=== PATIENT | female | born 1965 | race Caucasian/White ===

== ENCOUNTER 2016-08-04 12:05 | Emergency (ER) | payer MEDICAID ==
[2016-08-04 12:17] VITALS: BP 148/86
--- NOTE | 2016-08-04 13:48 | ERNOTE ---
Date of Service: 08/04/16 Time Seen by Provider: 08/04/16 13:48 Stated Complaint: FEVER,CHILLS,BACK PAIN Presenting Symptoms:: cough Source: patient Immunizations: IMMUNIZATION HX Immunizations Up to Date No History of Influenza Vaccine More Information Required Hx Pneumococcal Vaccination More Information Required Allergies/Adverse Reactions: Allergies No Known Allergies Allergy (Verified 08/04/16 12:17) Home Medications: HOME MEDICATIONS Albuterol Sulfate [Ventolin HFA] 2 puff IH Q6H PRN 7 Days 08/04/16 [Last Taken Unknown] Benzonatate [Tessalon Perle] 100 mg PO TID #20 capsule 08/04/16 [Last Taken Unknown] Doxycycline Monohydrate 100 mg PO BID #20 tablet 08/04/16 [Last Taken Unknown] Prednisone [Deltasone] 20 mg PO BID #10 tablet 08/04/16 [Last Taken Unknown] - History of Present Ilness Timing: constant Severity: moderate Frequency/Possible Cause: Reports: no prior episodes Associated Symptoms: Reports: cough, shortness of breath Review of Systems - Review of Systems Constitutional: Present: See HPI EYE: Present: no symptoms reported ENT: Present: sore throat Respiratory: Present: shortness of breath, cough, wheezing Cardiology: Present: no symptoms reported Gastrointestinal/Abdominal: Present: no symptoms reported Genitourinary: Present: no symptoms reported Musculoskeletal: Present: no symptoms reported Skin: Present: no symptoms reported Neurological: Present: no symptoms reported Endocrine: Present: no symptoms reported Hematologic/Lymphatic: Present: no symptoms reported Psych: Present: no symptoms reported - Patient's Past Medical History Patient History - Medical: Arthritis, Chronic Pain, GERD, Migraines, Other Patient History - Cardiac/Respiratory: Asthma Patient History - Cancer: No Hx of Cancer Patient History - Surgical Procedures: , Tubal Ligation, Other - Family History Mother Family History - Medical: , No pertinent hx Father Family History - Medical: History Unknown - Social History Living Situations: home Alcohol Use: occasionally Drug Use: none Physical Exam - Physical Exam General Appearance: Present: wd/wn, alert, moderate distress Eye Exam: Normal inspection: bilateral, PERRL: bilateral Ears, Nose, Throat: Present: hearing grossly normal, pharyngeal erythema Neck: Present: normal inspection, nontender Respiratory: Present: no accessory muscle use, chest nontender, wheezing, other - fine coarse breath sounds Cardiovascular/Chest: Present: regular rate, rhythm, no murmur, normal peripheral pulses Gastrointestinal/Abdominal: Present: normal bowel sounds, nontender, nondistended, soft, no organomegaly Rectal Exam: Present: deferred Back Exam: Present: normal inspection, normal range of motion Extremity Exam: Present: normal inspection, non-tender, no edema, normal range of motion Neurological Exam: Present: alert, oriented, normal mood/affect Skin Exam: Present: normal color, warm/dry Lymphatic Exam: Present: no adenopathy ED Progress - Results and Orders Patient's Lab Results:: I have reviewed the patient's lab results. - Vital Signs Patient's Vital Signs:: I have reviewed the patient's vital signs. Vital Signs: Vital Signs 08/04/16 12:12 Temperature 36.6 C Pulse Rate 97 Respiratory 12 Rate Blood Pressure 148/86 O2 Sat by Pulse 100 Oximetry - X-Ray X-Ray #1 X-Ray: chest Interpretation: Reviewed by me - Progress/Reassessment Chief Complaint: Upper Respiratory Symptoms Progress:: Improved - Transfer of Care Expected Disposition: Discharge Plan - Plan Plan: We discussed smoking cessation and she will consider it. Departure - Departure Clinical Impression: COPD (chronic obstructive pulmonary disease) with acute bronchitis Disposition: Home self-care Condition: Good Instructions: Chronic Obstructive Pulmonary Disease, [id number] Prescriptions: Albuterol Sulfate [Ventolin HFA] 2 puff IH Q6H PRN 7 Days PRN Reason: Wheezing Benzonatate [Tessalon Perle] 100 mg PO TID #20 capsule Doxycycline Monohydrate 100 mg PO BID #20 tablet Prednisone [Deltasone] 20 mg PO BID #10 tablet
[2016-08-04] MEDS ORDERED: predniSONE 20 MG TABLET PO ONE (14:01)
[2016-08-04] MEDS ORDERED: BENZONATATE 100 MG CAPSULE PO ONE ×2 (14:01→14:17)
[2016-08-04] MEDS ORDERED: ALBUTEROL SULFATE/IPRATROPIUM 3 ML NEBU IH ONE ×2 (14:01→14:17)
[2016-08-04 14:17] LABS: Hematocrit 46.7 % (37.0-47.0); Hemoglobin 15.2 gm/dL (12.5-16.0); Mean Cell Volume 93.8 fl (78-100); Mean Corpuscular Hemoglobin 30.5 pg (27-31); Mean Corpuscular Hgb Conc 32.5 g/dl (32-36); Mean Platelet Volume 9.1 fl (6.0-9.5); Neutrophil # 4.4 K/mm3 (1.3-6.0); Neutrophil % 52.3 % (42-75.0); Platelet Count 324 K/mm3 (150-450); Red Blood Count 4.98 M/mm3 (4.2-5.4); Red Cell Distribution Width 12.7 % (11.5-14.0); White Blood Count 8.4 K/mm3 (4.0-10.5)
[2016-08-04] MEDS ORDERED: predniSONE 20 MG TABLET ONE (14:17)
[2016-08-04 14:38] LABS: Anion Gap 10.8 mmol/L (6.8-13.8); Bilirubin, Total 0.5 mg/dL (0.0-1.1); Ca. Corrected For Albumin 8.3 mg/dL (8.4-10.2); Calcium * 8.6 mg/dL (7.9-10.9); Carbon Dioxide 30.4 mmol/L (24-32.6); Magnesium 2.1 mg/dL (1.2-2.8); Potassium 4.2 mmol/L (3.4-4.6); Total Protein 7.4 gm/dL (6.2-8.2)
== END 2016-08-04 15:50 | disposition home or self-care (01) ==
LOC: ER 12:05
DX: J44.0 Chronic obstructive pulmonary disease with (acute) lower respiratory infection (principal); J20.9 Acute bronchitis, unspecified

== ENCOUNTER 2016-09-15 12:20 | Emergency (ER) | payer MEDICAID ==
[2016-09-15] MEDS ORDERED: ASPIRIN 81 MG TAB.CHEW PO ONE (12:38)
[2016-09-15] MEDS ORDERED: oxyCODONE HCL/ACETAMINOPHEN 1 TAB TABLET PO ONE (12:39)
[2016-09-15] MEDS ORDERED: ORPHENADRINE CITRATE 30 MG/ML VIAL IV ONE (12:39)
--- NOTE | 2016-09-15 12:49 | ERNOTE ---
Medical Problem HPI - Narrative Date of Service: 09/15/16 - General Chief Complaint: General Assessment Time Seen by Provider: 09/15/16 12:32 Source: patient Exam Limitations: no limitations - Immun/Allergies/Home Medications Immunizations: IMMUNIZATION HX Immunizations Up to Date No History of Influenza Vaccine More Information Required Hx Pneumococcal Vaccination More Information Required Allergies/Adverse Reactions: Allergies No Known Allergies Allergy (Verified 09/15/16 12:29) Home Medications: HOME MEDICATIONS Albuterol Sulfate [Ventolin HFA] 2 puff IH Q6H PRN 7 Days 08/04/16 [Last Taken Unknown] Albuterol Sulfate [Proair Respiclick] 90 mcg IH Q6H #1 aer.pow.ba 09/15/16 [ Last Taken Unknown] Azithromycin [Zithromax] 250 mg PO DAILY #5 tablet 09/15/16 [Last Taken Unknown] oxyCODONE HCL/ACETAMINOPHEN [Percocet 5 MG/325 MG] 1 tab PO Q8H #12 tablet 09/15 [Last Taken Unknown] - History of Present History Narrative: Patient comes due to a R side chest pain that gets worse with breathing and movement. Patient with no Hx of Tx and coughing. The pain started suddenly while working sitting. Timing: constant Severity: severe Modifying Factors - (Improves): Present: other - Nothing Modifying Factors - (Worsens): Present: movement Review of Systems - Review of Systems Constitutional: Absent: fever, chills, weakness, malaise EYE: Present: no symptoms reported ENT: Present: no symptoms reported Respiratory: Present: shortness of breath, cough. Absent: wheezing Cardiology: Present: chest pain - R side of the chest Gastrointestinal/Abdominal: Present: no symptoms reported Genitourinary: Present: no symptoms reported Musculoskeletal: Present: no symptoms reported Skin: Present: no symptoms reported Neurological: Present: no symptoms reported Endocrine: Present: no symptoms reported Hematologic/Lymphatic: Absent: easy bruising, easy bleeding Psych: Present: no symptoms reported All Other Systems: All systems neg except as marked - Patient's Past Medical History Patient History - Medical: Arthritis, Chronic Pain, GERD, Migraines, Other Patient History - Cardiac/Respiratory: COPD Patient History - Cancer: No Hx of Cancer Patient History - Surgical Procedures: , Tubal Ligation, Other Patient History - Other: None LMP (Calendar): 10/24/15 - Family History Mother Family History - Medical: , No pertinent hx Father Family History - Medical: History Unknown - Social History Living Situations: home Abuse History: No History of abuse Psych History: No pertinent hx Smoking Status: Current every day smoker Have you smoked in the past 12 months: Yes Alcohol Use: occasionally Drug Use: none - Immunizations Immunizations Up to Date: No Hx Pneumococcal Vaccination: More Information Required to Determine History of Influenza Vaccine: More Information Required to Determine Physical Exam - Physical Exam General Appearance: Present: wd/wn, alert, no apparent distress, anxious, thin Eye Exam: Normal inspection: bilateral, PERRL: bilateral, EOMI: bilateral Ears, Nose, Throat: Present: normal ENT inspection, hearing grossly normal, normal pharynx Neck: Present: normal inspection, nontender Respiratory: Present: no respiratory distress, normal breath sounds, no accessory muscle use, lungs clear, chest tenderness - There is pain on breathing and on palpation on the R side of the chest. No rash was noticed on the area Cardiovascular/Chest: Present: regular rate, rhythm, no murmur, normal peripheral pulses Gastrointestinal/Abdominal: Present: normal bowel sounds, nontender, nondistended, soft, no organomegaly Back Exam: Present: normal inspection, normal range of motion, no CVA tenderness , no vertebral tenderness Extremity Exam: Present: normal inspection, non-tender, no edema, normal range of motion Neurological Exam: Present: alert, oriented, normal mood/affect, no motor/ sensory deficits Skin Exam: Present: normal color, warm/dry Lymphatic Exam: Present: no adenopathy ED Progress - Date and Time Seen: Date and Time: 09/15/16 15:30 PORT/PSI Score for CAP: Class II Patient with no distress and is not vomiting. Patient will be given Tx. CT and X -ray report by Radiologist were noticed. 09/15/16 15:31 Patient has been informed of the need of follow up and using her antibiotics. - Results and Orders Patient's Lab Results:: I have reviewed the patient's lab results. Results and Orders: CBC: Elevated WBC D-Dimmer: Negative PT/INR: Normal CMP: Normal Trop 1: Negative - Vital Signs Patient's Vital Signs:: I have reviewed the patient's vital signs. Vital Signs: Vital Signs 09/15/16 12:24 Pulse Rate 97 Respiratory 23 H Rate Blood Pressure 145/94 O2 Sat by Pulse 97 Oximetry - EKG EKG: NSR EKG read: Interp. by me EKG Comments: HR: 97, Normal [place], No ST Elevation - X-Ray X-Ray #1 X-Ray: chest - Pneumonia Documented by Radiologist - CT/Ultrasound CT/Ultrasound Narrative: CT of the Chest was done and infectious process was confirmed. F/U CT with IV contrast was recommended. - Progress/Reassessment Chief Complaint: General Assessment Progress:: Improved - Transfer of Care Expected Disposition: Discharge Departure - Departure Clinical Impression: Chest pain Qualifiers: Chest pain type: unspecified Qualified Code(s): R07.9 - Chest pain, unspecified Pneumonia Qualifiers: Pneumonia type: due to unspecified organism Laterality: unspecified laterality Lung location: unspecified part of lung Qualified Code(s): J18.9 - Pneumonia, unspecified organism Disposition: Home self-care Condition: Stable Instructions: Chest Wall Pain, [id number], Chronic Obstructive Pulmonary Disease, [id number], Pneumonia, Infant Prescriptions: Albuterol Sulfate [Proair Respiclick] 90 mcg IH Q6H #1 aer.pow.ba Azithromycin [Zithromax] 250 mg PO DAILY #5 tablet oxyCODONE HCL/ACETAMINOPHEN [Percocet 5 MG/325 MG] 1 tab PO Q8H #12 tablet
[2016-09-15 12:50] LABS: Hematocrit 38.4 % (37.0-47.0); Mean Corpuscular Hemoglobin 30.8 pg (27-31); Mean Corpuscular Hgb Conc 33.9 g/dl (32-36); Mean Platelet Volume 9.3 fl (6.0-9.5); Neutrophil # 13.9 K/mm3 (1.3-6.0); Neutrophil % 78.8 % (42-75.0); Platelet Count 275 K/mm3 (150-450); Red Blood Count 4.22 M/mm3 (4.2-5.4); Red Cell Distribution Width 12.7 % (11.5-14.0); White Blood Count 17.6 K/mm3 (4.0-10.5)
[2016-09-15 13:03] LABS: Prothrombin Time (Patient) 10.4 Seconds (9.4-11.4)
[2016-09-15 13:05] LABS: Partial Thrombolplastin Time 29.5 Seconds (24-32)
[2016-09-15] MEDS ORDERED: oxyCODONE HCL/ACETAMINOPHEN 1 TAB TABLET ONE (13:05)
[2016-09-15] MEDS ORDERED: ORPHENADRINE CITRATE 30 MG/ML VIAL ONE (13:05)
[2016-09-15] MEDS ORDERED: ASPIRIN 81 MG TAB.CHEW ONE (13:05)
[2016-09-15 13:08] LABS: ALT 48 U/L (19-67); AST 28 U/L (0-48); Albumin * 3.7 gm/dl (3.4-5.0); Alkaline Phosphatase * 74 U/L (50-170); Anion Gap 16.9 mmol/L (6.8-13.8); BUN/Creatinine Ratio 18.3 (9.0-21.6); Bilirubin, Total 0.9 mg/dL (0.0-1.1); Blood Urea Nitrogen 13 mg/dL (3-23); Ca. Corrected For Albumin 8.4 mg/dL (8.4-10.2); Calcium * 8.5 mg/dL (7.9-10.9); Carbon Dioxide 20.9 mmol/L (24-32.6); Chloride 102 mmol/L (97-106); Glucose * 97 mg/dL (70-110); Potassium 3.8 mmol/L (3.4-4.6); Sodium 136 mmol/L (132-142); Total Protein 7.6 gm/dL (6.2-8.2); Troponin I Less than 0.017 ng/ml (0.00-0.10)
--- OUTSIDE RECORDS SUMMARY | 2016-09-15 13:12 | XMS REPORT | Continuity of Care Document ---
:1965 Author Organization [facility] ([facility]) Address [address] [place] [address] Phone [phone] Care Team Providers Name Role Phone Alec Hartley Primary Care Provider [phone] Source Comments This disclosure is being made pursuant to the Care Everywhere program, applicable federal and state laws, and may not contain all informaitonavailable regarding this patient.[facility] ([facility]) Active Allergies and Adverse Reactions Allergen Noted Date Severity Reactions Comments Non-Med Tape Blisters,Ulcers Current Medications Prescription Sig. Disp. Refills Start Date End Date Status ASPIRIN/ACETAMINOPHEN/ Take by mouth Active CAFFEINE (EXCEDRIN as needed. MIGRAINE PO) ibuprofen (ADVIL) 200 Take 400 mg by Active mg tablet mouth every 6 hours as needed. risperiDONE 2 mg Take 2 mg by Active tablet mouth daily. naltrexone 50 mg Take 50 mg by Active tablet mouth daily. ondansetron 8 mg Take 8 mg by Active tablet mouth as needed. topiramate 50 mg Take 50 mg by Active tablet mouth daily. diphenhydrAMINE 25 mg Take 100 mg by Active capsule mouth at bedtime as needed. amoxicillin-clavulanat Take 1 Tab by Active e 500-125 mg per mouth 3 times tablet daily. escitalopram 20 mg Take 10 mg by Active tablet mouth daily. polyethylene Take as directed 1 Container 0 09/10/2013 Active glycol-electrolyte the evening (GOLYTELY) suspension before your procedure. 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 Temperature 36.3 C (97.3 F) 10/01/2013 3:21 PM CDT Respiratory Rate 16 10/01/2013 5:23 PM CDT Height 1.575 m (5' 2.01") 06/06/2013 9:52 AM MANAGER PROVIDER RELATIONS Weight 50.576 kg (111 lb 8 oz) 06/06/2013 9:52 AM MANAGER PROVIDER RELATIONS Body Mass Index 20.39 06/06/2013 9:52 AM MANAGER PROVIDER RELATIONS Oxygen Saturation 100% 10/01/2013 5:23 PM CDT Plan of Care Health Maintenance Due Date Last Done Comments HCV Screening 1965 Hepatitis B Vaccine (1 of 3 - Primary Series) 1965 Tdap Vaccine 1976 Lipid Disorder Screening 1983 MMR Vaccine 1983 Td Vaccine 1983 Pneumococcal Vaccine (1 of 1 - PPSV23) 1984 Cervical Cancer Screening 1995 Mammogram 2005 Influenza Vaccine: Seasonal (#1) 02/23/2016 Colonoscopy 10/08/2023 10/07/2013 Results from Last 3 Months Not on file
[2016-09-15] MEDS ORDERED: AZITHROMYCIN 250 MG TABLET PO ONE (14:06)
[2016-09-15] MEDS ORDERED: AZITHROMYCIN 250 MG TABLET ONE (14:09)
[2016-09-15 16:45] VITALS: BP 117/81
== END 2016-09-15 15:40 | disposition home or self-care (01) ==
LOC: ER 12:20
DX: J18.9 Pneumonia, unspecified organism (principal); R07.9 Chest pain, unspecified; F17.210 Nicotine dependence, cigarettes, uncomplicated

== ENCOUNTER 2016-12-16 11:31 | Emergency (ER) | payer SELFPAY ==
--- NOTE | 2016-12-16 12:03 | ERNOTE ---
Chest Pain/Cardiac HPI Chief Complaint: Chest Pain Time Seen by Provider: 12/16/16 11:31 Source: patient Exam Limitations: no limitations Immunizations: IMMUNIZATION HX Immunizations Up to Date Yes History of Influenza Vaccine Yes Hx Pneumococcal Vaccination Yes Allergies/Adverse Reactions: Allergies No Known Allergies Allergy (Verified 12/16/16 11:47) Home Medications: HOME MEDICATIONS Albuterol Sulfate [Ventolin HFA] 2 puff IH Q6H PRN 7 Days 08/04/16 [Last Taken Unknown] Albuterol Sulfate [Proair Respiclick] 90 mcg IH Q6H #1 aer.pow.ba 09/15/16 [ Last Taken Unknown] Azithromycin [Zithromax] 250 mg PO DAILY #5 tablet 09/15/16 [Last Taken Unknown] oxyCODONE HCL/ACETAMINOPHEN [Percocet 5 MG/325 MG] 1 tab PO Q8H #12 tablet 09/15 [Last Taken Unknown] Narrative: Patient is send over from the walk in clinic for chest and abdominal pain that she has had on and off for about two weeks. She was seen in the ER in August and treated for a COPD exacerbation. Two weeks ago she had an episode of chest pain and congestion, two days ago an episode where she felt that something was sitting on her chest. She went to the walk in clinic where she was found to be confused and reporting the recent chest pain. The patient denies any current pain, shortness of breath at baseline. She still smokes. She also complains of abdominal discomfort that has been going on for a while, nausea, no vomiting, normal bowel movement this morning. She has been going through a lot of stress, lost her mother recently, lost her job. Review of Systems - Review of Systems Constitutional: Absent: recent illness, fever EYE: Absent: vision changes ENT: Absent: nose congestion, throat swelling Respiratory: Present: shortness of breath, cough Cardiology: Present: See HPI, chest pain Gastrointestinal/Abdominal: Present: See HPI, nausea. Absent: vomiting, diarrhea Genitourinary: Present: no symptoms reported Musculoskeletal: Absent: back pain, neck pain Neurological: Present: anxiety, headache - left sided, feels like migraine. Absent: weakness, numbness - Patient's Past Medical History Patient History - Medical: Arthritis, Chronic Pain, GERD, Migraines, Other Patient History - Cardiac/Respiratory: COPD Patient History - Cancer: No Hx of Cancer Patient History - Surgical Procedures: , Tubal Ligation, Other Patient History - Other: None LMP (females 10-50): now LMP (Calendar): 10/24/15 - Family History Mother Family History - Medical: , No pertinent hx Father Family History - Medical: History Unknown - Social History Living Situations: home Abuse History: No History of abuse Psych History: No pertinent hx Smoking Status: Current every day smoker Alcohol Use: occasionally Drug Use: none - Immunizations Immunizations Up to Date: Yes Hx Pneumococcal Vaccination: Yes History of Influenza Vaccine: Yes Physical Exam - Physical Exam General Appearance: Present: wd/wn, alert, no apparent distress, anxious Eye Exam: Normal inspection: bilateral, PERRL: bilateral Ears, Nose, Throat: Present: normal pharynx Respiratory: Present: no respiratory distress, no accessory muscle use, lungs clear, decreased breath sounds Cardiovascular/Chest: Present: regular rate, rhythm, no murmur Gastrointestinal/Abdominal: Present: normal bowel sounds, nondistended, soft, tenderness - mild epigastric Extremity Exam: Present: no edema Neurological Exam: Present: alert, oriented, normal mood/affect Skin Exam: Present: normal color, warm/dry ED Progress - Results and Orders Patient's Lab Results:: I have reviewed the patient's lab results. - Vital Signs Patient's Vital Signs:: I have reviewed the patient's vital signs. Vital Signs: Vital Signs 12/16/16 12/16/16 11:40 11:55 Temperature 36.4 C L Pulse Rate 85 69 Respiratory 14 Rate Blood Pressure 108/90 O2 Sat by Pulse 100 Oximetry - EKG EKG: NSR, unchanged from - 09/15/16, other - prominent P wave, no acute changes EKG read: Interp. by me - X-Ray X-Ray #1 X-Ray: chest - no acute changes Interpretation: Reviewed by me X-Ray #2 X-Ray: abdomen - non specific bowel gas pattern Interpretation: Reviewed by me - Progress/Reassessment Chief Complaint: Chest Pain Progress Note-Subjective: 12/16/16 13:13 discussed results with patient, still has headache 12/16/16 13:57 feeling much better after GI cocktail Departure - Departure Clinical Impression: Anxiety Migraine Qualifiers: Migraine type: unspecified Status migrainosus presence: without status migrainosus Intractability: not intractable Qualified Code(s): G43.909 - Migraine, unspecified, not intractable, without status migrainosus Gastritis Qualifiers: Gastritis type: unspecified gastritis Chronicity: acute Gastritis bleeding: without bleeding Qualified Code(s): K29.00 - Acute gastritis without bleeding Disposition: Home self-care Condition: Good Instructions: Gastritis, Adult, [id number] Additional Instructions: take over the counter zantac or pepcid call your doctor for a follow up appointment Referrals: Cami Engle DO [Primary Care Provider] -
--- OUTSIDE RECORDS SUMMARY | 2016-12-16 12:06 | XMS REPORT | Continuity of Care Document ---
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
[2016-12-16 12:07] LABS: Hematocrit 50.5 % (37.0-47.0); Hemoglobin 16.7 gm/dL (12.5-16.0); Mean Corpuscular Hemoglobin 30.4 pg (27-31); Mean Corpuscular Hgb Conc 33.1 g/dl (32-36); Mean Platelet Volume 9.4 fl (6.0-9.5); Neutrophil % 73.3 % (42-75.0); Platelet Count 330 K/mm3 (150-450); Red Blood Count 5.49 M/mm3 (4.2-5.4); Red Cell Distribution Width 12.9 % (11.5-14.0); White Blood Count 8.3 K/mm3 (4.0-10.5)
[2016-12-16 12:25] LABS: ALT 60 U/L (19-67); AST 44 U/L (0-48); Albumin * 4.3 gm/dl (3.4-5.0); Alkaline Phosphatase * 78 U/L (50-170); Amylase * 72 U/L (25-115); Anion Gap 12.6 mmol/L (6.8-13.8); BUN/Creatinine Ratio 12.3 (9.0-21.6); Bilirubin, Total 0.7 mg/dL (0.0-1.1); Blood Urea Nitrogen 10 mg/dL (3-23); Ca. Corrected For Albumin 8.4 mg/dL (8.4-10.2); Carbon Dioxide 29.4 mmol/L (24-32.6); Chloride 102 mmol/L (97-106); Glucose * 95 mg/dL (70-110); Lipase 260 U/L (73-393); Sodium 140 mmol/L (132-142); Total Protein 8.2 gm/dL (6.2-8.2); Troponin I Less than 0.017 ng/ml (0.00-0.10)
[2016-12-16] MEDS ORDERED: KETOROLAC TROMETHAMINE 60 MG/2 ML VIAL IM ONE ×2 (13:12→13:26)
[2016-12-16] MEDS ORDERED: MAG HYDROX/ALUMINUM HYD/SIMETH 30 ML UDC PO ONE (13:13)
[2016-12-16] MEDS ORDERED: SUCRALFATE 1 G/10 ML UDC PO ONE (13:13)
[2016-12-16] MEDS ORDERED: LIDOCAINE HCL 20 ML UDC PO ONE (13:13)
[2016-12-16 15:18] VITALS: BP 127/69
== END 2016-12-16 14:05 | disposition home or self-care (01) ==
LOC: ER 11:31
DX: F41.9 Anxiety disorder, unspecified (principal); K29.00 Acute gastritis without bleeding; G43.909 Migraine, unspecified, not intractable, without status migrainosus; F17.200 Nicotine dependence, unspecified, uncomplicated

== ENCOUNTER 2016-12-22 17:09 | Emergency (ER) | payer SELFPAY ==
--- NOTE | 2016-12-22 17:54 | ERNOTE ---
Back Pain ER HPI Date of Service: 12/22/16 Presenting Symptoms: injury/pain to back Time Seen by Provider: 12/22/16 17:44 Source: patient Exam Limitations: other - deep breathing causes pain Immunizations: IMMUNIZATION HX Immunizations Up to Date Yes History of Influenza Vaccine Yes Hx Pneumococcal Vaccination Yes Allergies/Adverse Reactions: Allergies No Known Allergies Allergy (Verified 12/22/16 17:43) Home Medications: HOME MEDICATIONS Albuterol Sulfate [Ventolin HFA] 2 puff IH Q6H PRN 7 Days 08/04/16 [Last Taken Unknown] Amox Tr/Potassium Clavulanate [Augmentin 875-125 Tablet] 875 mg PO Q12H #20 tab 12/22/16 [Last Taken Unknown] Azithromycin [Zithromax Tri-Devin] 500 mg PO DAILY #5 tablet 12/22/16 [Last Taken Unknown] Guaifenesin/Codeine Phosphate [Guaifenesin-Codeine Liquid] 10 ml PO TID #480 liquid 12/22/16 [Last Taken Unknown] Review of Systems - Review of Systems Constitutional: Present: fever, chills EYE: Present: no symptoms reported ENT: Present: no symptoms reported Respiratory: Present: shortness of breath, cough, other - RIGHT SIDED PLEURITIC CP Cardiology: Present: chest pain - WITH INSPIRATION, RIGHT SIDED. Gastrointestinal/Abdominal: Present: no symptoms reported Genitourinary: Present: no symptoms reported Musculoskeletal: Present: no symptoms reported, other - PLEURITIC CP ON RT SIDE Skin: Present: no symptoms reported Neurological: Present: no symptoms reported Endocrine: Present: no symptoms reported Hematologic/Lymphatic: Present: no symptoms reported Psych: Present: no symptoms reported All Other Systems: All systems neg except as marked - Narrative Narrative: PMHX, PSHX, SOC HX, ALLERGIES, MEDICATIONS AND FAM HX REVIEWED - Patient's Past Medical History Patient History - Medical: Arthritis, Chronic Pain, GERD, Migraines, Other Patient History - Cardiac/Respiratory: COPD Patient History - Cancer: No Hx of Cancer Patient History - Surgical Procedures: , Tubal Ligation, Other Patient History - Other: None LMP (Calendar): 10/24/15 - Family History Mother Family History - Medical: , No pertinent hx Father Family History - Medical: History Unknown - Social History Living Situations: home Abuse History: No History of abuse Psych History: No pertinent hx Smoking Status: Current every day smoker Have you smoked in the past 12 months: Yes Alcohol Use: occasionally Drug Use: none - Immunizations Immunizations Up to Date: Yes Hx Pneumococcal Vaccination: Yes History of Influenza Vaccine: Yes Physical Exam - Physical Exam General Appearance: Present: wd/wn, alert, no apparent distress Eye Exam: Normal inspection: bilateral, PERRL: bilateral, EOMI: bilateral - NORMAL Ears, Nose, Throat: Present: normal ENT inspection, normal except -, pharyngeal erythema Neck: Present: normal inspection, nontender Respiratory: Present: no respiratory distress, normal breath sounds, no accessory muscle use, decreased breath sounds - RIGHT LLL Cardiovascular/Chest: Present: regular rate, rhythm, no murmur, normal peripheral pulses Gastrointestinal/Abdominal: Present: normal bowel sounds, nontender, nondistended, soft, no organomegaly Rectal Exam: Present: deferred Back Exam: Present: normal inspection, normal range of motion, no CVA tenderness Extremity Exam: Present: normal inspection, non-tender, normal range of motion, no edema Neurological Exam: Present: alert, oriented, normal mood/affect, no motor/ sensory deficits Skin Exam: Present: normal color, warm/dry Lymphatic Exam: Present: no adenopathy ED Progress - Date and Time Seen: Date and Time: 12/22/16 19:18 PLEURITIC CHEST PAIN - Results and Orders Patient's Lab Results:: I have reviewed the patient's lab results. - Vital Signs Patient's Vital Signs:: I have reviewed the patient's vital signs. Vital Signs: Vital Signs 12/22/16 17:40 Temperature 36.9 C Pulse Rate 97 Respiratory 14 Rate Blood Pressure 133/108 O2 Sat by Pulse 99 Oximetry - CT/Ultrasound CT/Ultrasound Narrative: PATIENT WAS INFORMED OF RESULTS OF CT OF CHEST, CONCERNS FOR PULM NODULES AND OR MALIG RECOMMENDATIONS REVIEWED W PATIENT TO HAVE A REPEAT CT THORAX BETWN 1 AND 3 MONTHS. PATIENT HAS ELEVATED WBC. - Progress/Reassessment Chief Complaint: Back Pain Progress:: Improved - Transfer of Care Expected Disposition: Discharge Plan - Plan Plan: PATIENT STABLE FOR DISCHARGE WILL FOLLOW UP WITH DR LYLE TO ENSURE PNEUMONIA RESOLVES. Departure Clinical Impression: Pneumonia, lobar, COPD (chronic obstructive pulmonary disease) with acute bronchitis Chest pain Qualifiers: Chest pain type: chest pain on breathing Qualified Code(s): R07.1 - Chest pain on breathing - Departure Disposition: Home self-care Instructions: Chronic Obstructive Pulmonary Disease Exacerbation, [id number] , Smoking Cessation, Tips for Success, [id number], Atelectasis, Adult, Pulmonary Fibrosis Referrals: Cami Lyle DO [Primary Care Provider] - Prescriptions: Amox Tr/Potassium Clavulanate [Augmentin 875-125 Tablet] 875 mg PO Q12H #20 tab Azithromycin [Zithromax Tri-Devin] 500 mg PO DAILY #5 tablet Guaifenesin/Codeine Phosphate [Guaifenesin-Codeine Liquid] 10 ml PO TID #480 liquid
[2016-12-22 18:31] LABS: Hematocrit 41.3 % (37.0-47.0); Hemoglobin 13.9 gm/dL (12.5-16.0); Mean Cell Volume 90.2 fl (78-100); Mean Corpuscular Hemoglobin 30.3 pg (27-31); Mean Corpuscular Hgb Conc 33.7 g/dl (32-36); Mean Platelet Volume 9.6 fl (6.0-9.5); Neutrophil # 9.1 K/mm3 (1.3-6.0); Neutrophil % 73.4 % (42-75.0); Platelet Count 309 K/mm3 (150-450); Red Blood Count 4.58 M/mm3 (4.2-5.4); Red Cell Distribution Width 12.6 % (11.5-14.0); White Blood Count 12.4 K/mm3 (4.0-10.5)
--- OUTSIDE RECORDS SUMMARY | 2016-12-22 18:32 | XMS REPORT | Continuity of Care Document ---
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
[2016-12-22 20:02] VITALS: BP 130/89
== END 2016-12-22 19:45 | disposition home or self-care (01) ==
LOC: ER 17:09
DX: J18.1 Lobar pneumonia, unspecified organism (principal); J44.0 Chronic obstructive pulmonary disease with (acute) lower respiratory infection; J20.9 Acute bronchitis, unspecified; F17.210 Nicotine dependence, cigarettes, uncomplicated

== ENCOUNTER 2017-04-22 11:43 | Emergency (ER) | payer MEDICAID ==
[2017-04-22] MEDS ORDERED: KETOROLAC TROMETHAMINE 60 MG/2 ML VIAL IM ONE ×2 (12:10→12:17)
--- NOTE | 2017-04-22 12:10 | ERNOTE ---
Upper Extremity HPI - Narrative Date of Service: 04/22/17 - General Extremities Pain Location: wrist: bilateral, hand: bilateral, other: bilateral - face Time Seen by Provider: 04/22/17 11:53 Source: patient Exam Limitations: no limitations - Immun/Allergies/Home Medications Immunizations: IMMUNIZATION HX Immunizations Up to Date Yes History of Influenza Vaccine Yes Hx Pneumococcal Vaccination Yes Allergies/Adverse Reactions: Allergies Allergy/AdvReac Type Severity Reaction Status Date / Time No Known Allergies Allergy Verified 04/22/17 11:49 Home Medications: HOME MEDICATIONS NK [No Home Medication] 04/22/17 [Last Taken Unknown] - History of Present Illness Narrative: Pt. comes in with c/o facial pain and B hand pain after she fell forward when she passed out twice this morning. Pt. states tath at around 8 am she passed out in her bathroom when she got up from the commode and then she went to the kitchen and passed out again. Pt. is unsure of how long her LOC was. Pt. denies any SOB, CP, NVD, fever, recent illness. Pt. has a hx of chronic pain but denies taking any medications prior to arrival for these symptoms. Review of Systems - Review of Systems Constitutional: Present: no symptoms reported. Absent: recent illness, fever, chills, weakness, fatigue, malaise, weight loss EYE: Present: no symptoms reported ENT: Present: nose pain. Absent: nose congestion, nasal drainage, other - epistaxis Respiratory: Present: no symptoms reported. Absent: shortness of breath, cough , wheezing Cardiology: Present: no symptoms reported. Absent: chest pain, palpitations, edema Gastrointestinal/Abdominal: Present: no symptoms reported Genitourinary: Present: no symptoms reported. Absent: frequency, decreased urinary output Musculoskeletal: Present: joint pain - B hands Skin: Present: no symptoms reported. Absent: rash, change in color Neurological: Present: no symptoms reported. Absent: headache, dizziness/light- headedness, numbness, tingling All Other Systems: All systems neg except as marked - Patient's Past Medical History Patient History - Medical: Arthritis, Chronic Pain, GERD, Migraines Patient History - Cardiac/Respiratory: COPD Patient History - Cancer: No Hx of Cancer Patient History - Surgical Procedures: , Tubal Ligation, Other Patient History - Other: None LMP (Calendar): 10/24/15 - Family History Mother Family History - Medical: , No pertinent hx Father Family History - Medical: History Unknown - Social History Living Situations: home Abuse History: No History of abuse Psych History: No pertinent hx Alcohol Use: occasionally Drug Use: none - Immunizations Immunizations Up to Date: Yes Hx Pneumococcal Vaccination: Yes History of Influenza Vaccine: Yes Physical Exam - Physical Exam General Appearance: Present: wd/wn, alert, no apparent distress Head Exam: Present: lacerations - mid nasal bone center 0.2 x 0.2cm Eye Exam: Normal inspection: bilateral, PERRL: bilateral, EOMI: bilateral Ears, Nose, Throat: Present: normal ENT inspection, normal pharynx Neck: Present: normal inspection, nontender. Absent: lymphadenopathy (R), lymphadenopathy (L) Respiratory: Present: no respiratory distress, normal breath sounds, no accessory muscle use, chest nontender, lungs clear Cardiovascular/Chest: Present: regular rate, rhythm, no murmur, normal peripheral pulses Gastrointestinal/Abdominal: Present: normal bowel sounds, nontender, nondistended, soft, no organomegaly Back Exam: Present: normal inspection Extremity Exam: Present: no edema, decreased range of motion - flexion of fingers, bony tenderness - All fingers B hands, joint redness - B hands bowers. 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 tearful Skin Exam: Present: normal color, warm/dry. Absent: pallor, skin rash ED Progress - Date and Time Seen: Date and Time: 04/22/17 12:[address] Bruce and since pt. passed out and hit face on floor then she recommends CT scan of head and face vs xray. Pt. c spine not tender at all so will not image this. 04/22/17 13:33 Pt. with no nasal drainage and denies any sinus congestion but given mucosal thickening and 10.9 WBC feel taht pt. may have chronic sinusitis along with drug use that is causing passing out but that hands are simply contusions from landing with her hands out. - Results and Orders Patient's Lab Results:: I have reviewed the patient's lab results. - Vital Signs Patient's Vital Signs:: I have reviewed the patient's vital signs. Vital Signs: Vital Signs 04/22/17 11:46 Temperature 36.4 C L Pulse Rate 88 Respiratory 12 Rate Blood Pressure 182/77 O2 Sat by Pulse 100 Oximetry - X-Ray X-Ray #1 X-Ray: hand Interpretation: Reviewed by me X-ray Comments: no acute ossious abnormality X-Ray #2 X-Ray: hand Interpretation: Reviewed by me X-ray Comments: no obvious ossious abnormality - CT/Ultrasound CT/Ultrasound Narrative: CT face and head without any abnormality - Progress/Reassessment Chief Complaint: Upper Extremity Injury/Problem Departure Clinical Impression: Methamphetamine use Contusion of hand including fingers Qualifiers: Encounter type: initial encounter Laterality: unspecified laterality Qualified Code(s): S60.229A - Contusion of unspecified hand, initial encounter; S60.00XA - Contusion of unspecified finger without damage to nail, initial encounter Chronic sinusitis Qualifiers: Sinusitis location: ethmoidal Qualified Code(s): J32.2 - Chronic ethmoidal sinusitis Facial contusion Qualifiers: Encounter type: initial encounter Qualified Code(s): S00.83XA - Contusion of other part of head, initial encounter - Departure Disposition: Home self-care Condition: Good Instructions: Sinusitis, Adult, [id number], Stimulant Use Disorder- Amphetamines, Hand Contusion, [id number] Additional Instructions: Please follow up with priomary provider in 2-3 days please stop amphetamine use. May use Ibuprofen up to 600mg every six hours for pain.
[2017-04-22 12:15] LABS: Hematocrit 44.9 % (37.0-47.0); Hemoglobin 15.2 gm/dL (12.5-16.0); Mean Cell Volume 91.4 fl (78-100); Mean Corpuscular Hgb Conc 33.9 g/dl (32-36); Mean Platelet Volume 9.3 fl (6.0-9.5); Neutrophil # 7.4 K/mm3 (1.3-6.0); Neutrophil % 69.4 % (42-75.0); Platelet Count 293 K/mm3 (150-450); Red Blood Count 4.91 M/mm3 (4.2-5.4); Red Cell Distribution Width 12.6 % (11.5-14.0); White Blood Count 10.7 K/mm3 (4.0-10.5)
[2017-04-22 12:24] LABS: Urine Bilirubin Negative (NEGATIVE); Urine Blood 25 /ul (NEGATIVE); Urine Ketone Negative (NEGATIVE); Urine Nitrite Negative (NEGATIVE); Urine Protein Negative (NEGATIVE); Urine Specific Gravity 1.025 SP.GR. (1.005-1.010); Urine Urobilinogen Normal (NORMAL)
[2017-04-22 12:31] LABS: ALT 43 U/L (19-67); AST 28 U/L (0-48); Albumin * 4.1 gm/dl (3.4-5.0); Alkaline Phosphatase * 69 U/L (50-170); Anion Gap 12.4 mmol/L (6.8-13.8); BUN/Creatinine Ratio 16.2 (9.0-21.6); Bilirubin, Total 0.6 mg/dL (0.0-1.1); Blood Urea Nitrogen 12 mg/dL (3-23); Ca. Corrected For Albumin 7.8 mg/dL (8.4-10.2); Calcium * 8.2 mg/dL (7.9-10.9); Carbon Dioxide 26.7 mmol/L (24-32.6); Chloride 104 mmol/L (97-106); Glucose * 122 mg/dL (70-110); Potassium 4.1 mmol/L (3.4-4.6); Sodium 139 mmol/L (132-142); Total Protein 7.6 gm/dL (6.2-8.2)
[2017-04-22 12:34] LABS: Urine Appearance Clear; Urine Bacteria None Seen; Urine Color Dark Yellow; Urine RBC 0-5 /hpf (0-5); Urine WBC None Seen /hpf (0-5)
[2017-04-22 12:38] LABS: Cocaine Ur Negative (NEGATIVE); Urine Barbiturate Negative (NEGATIVE); Urine Benzodiazepines Negative (NEGATIVE); Urine Opiates Negative (NEGATIVE); Urine PCP Negative (NEGATIVE)
[2017-04-22 12:41] LABS: Urine THC Positive (NEGATIVE)
[2017-04-22 13:51] VITALS: BP 118/74
== END 2017-04-22 13:46 | disposition home or self-care (01) ==
LOC: ER 11:43
DX: S60.222A Contusion of left hand, initial encounter (principal); S60.221A Contusion of right hand, initial encounter; S00.33XA Contusion of nose, initial encounter; J32.2 Chronic ethmoidal sinusitis; F15.10 Other stimulant abuse, uncomplicated; W18.39XA Other fall on same level, initial encounter; Y92.008 Other place in unspecified non-institutional (private) residence as the place of occurrence of the external cause
CPT/HCPCS: 36415; 70450; 70486; 73130; 80053; 80307; 81001; 85025; 85652; 86140; 96372; 99283; 99285; G0481

== ENCOUNTER 2017-06-05 11:52 | Emergency (ER) | payer MEDICAID ==
[2017-06-05] MEDS ORDERED: KETOROLAC TROMETHAMINE 60 MG/2 ML VIAL IM ONE (12:10)
[2017-06-05] MEDS ORDERED: BENZONATATE 100 MG CAPSULE PO ONE ×2 (12:11→12:14)
[2017-06-05] MEDS ORDERED: KETOROLAC TROMETHAMINE 30 MG/ML VIAL ONE (12:14)
--- NOTE | 2017-06-05 12:18 | ERNOTE ---
Chest Pain/Cardiac HPI Chief Complaint: Chest Pain Time Seen by Provider: 06/05/17 12:05 Source: patient Exam Limitations: no limitations Immunizations: IMMUNIZATION HX Immunizations Up to Date Yes History of Influenza Vaccine Yes Hx Pneumococcal Vaccination Yes Allergies/Adverse Reactions: Allergies No Known Allergies Allergy (Verified 04/22/17 11:49) Home Medications: HOME MEDICATIONS Budesonide/Formoterol Fumarate [Symbicort 160-4.5 Mcg Inhaler] 2 puff IH BID 07/10 [Last Taken Unknown] Doxycycline Monohydrate 100 mg PO BID #20 tablet 06/05/17 [Last Taken Unknown] Naproxen [Naprosyn] 500 mg PO BID #60 tablet 06/05/17 [Last Taken Unknown] predniSONE [Deltasone] 20 mg PO BID #10 tablet 06/05/17 [Last Taken Unknown] Narrative: Patient presents with left lateral chest pain at approximately the mid thoracic area. Patient states the pain is worse with deep breath and coughing and admits to being a smoker. She rates the pain as moderate in severity. Timing: constant Severity/Quality: moderate Location: left chest Chest Pain Radiation: no radiation Activities at Onset: none - coughing Modifying Factors - Improves: Present: nothing Modifying Factors - Worsens: Present: breathing, coughing Associated Symptoms: Present: denies symptoms Prior Chest Pain/Cardiac Workup: Reports: non-cardiac Review of Systems - Review of Systems Constitutional: Present: See HPI EYE: Present: no symptoms reported ENT: Present: no symptoms reported Respiratory: Present: cough Cardiology: Present: chest pain - left lateral chest wall Gastrointestinal/Abdominal: Present: no symptoms reported Genitourinary: Present: no symptoms reported Musculoskeletal: Present: no symptoms reported Skin: Present: no symptoms reported Neurological: Present: no symptoms reported Endocrine: Present: no symptoms reported Hematologic/Lymphatic: Present: no symptoms reported Psych: Present: no symptoms reported - Patient's Past Medical History Patient History - Medical: Arthritis, Chronic Pain, GERD, Migraines Patient History - Cardiac/Respiratory: COPD, Pneumonia Patient History - Cancer: No Hx of Cancer Patient History - Surgical Procedures: , Tubal Ligation, Other Patient History - Other: None - Family History Mother Family History - Medical: , No pertinent hx Father Family History - Medical: History Unknown - Social History Abuse History: No History of abuse Psych History: No pertinent hx - Immunizations Immunizations Up to Date: Yes Hx Pneumococcal Vaccination: Yes History of Influenza Vaccine: Yes Physical Exam - Physical Exam General Appearance: Present: wd/wn, alert, moderate distress Head Exam: Present: normal inspection Eye Exam: Normal inspection: bilateral, PERRL: bilateral Ears, Nose, Throat: Present: normal ENT inspection, H, normal pharynx Neck: Present: normal inspection, nontender Respiratory: Present: chest tenderness - left lower chest wall also tender to palpation, rales - left mid lung area, pleural rub - questionable on the left Cardiovascular/Chest: Present: regular rate, rhythm, no murmur, normal peripheral pulses Gastrointestinal/Abdominal: Present: normal bowel sounds, nontender, nondistended, soft, no organomegaly Rectal Exam: Present: deferred Back Exam: Present: normal inspection, normal range of motion Extremity Exam: Present: normal inspection, non-tender, no edema, normal range of motion Neurological Exam: Present: alert, oriented, normal mood/affect Skin Exam: Present: normal color, warm/dry Lymphatic Exam: Present: no adenopathy ED Progress - Results and Orders Patient's Lab Results:: I have reviewed the patient's lab results. - Vital Signs Patient's Vital Signs:: I have reviewed the patient's vital signs. Vital Signs: Vital Signs 06/05/17 11:55 Temperature 37.3 C Pulse Rate 87 Respiratory 18 Rate Blood Pressure 156/96 O2 Sat by Pulse 100 Oximetry - X-Ray X-Ray #1 X-Ray: chest Interpretation: Reviewed by me - Progress/Reassessment Chief Complaint: Chest Pain Plan - Plan Plan: Patient appears to have pleurisy secondary to her COPD/bronchitis. He should be started on doxycycline, prednisone and Naprosyn and she will follow-up with her family physician in a week to 10 days. Departure Clinical Impression: COPD (chronic obstructive pulmonary disease) with acute bronchitis, Pleurisy - Departure Disposition: Home self-care Condition: Good Instructions: Chronic Obstructive Pulmonary Disease, [id number], Acute Bronchitis, [id number], Pleurisy, [id number] Prescriptions: Doxycycline Monohydrate 100 mg PO BID #20 tablet Naproxen [Naprosyn] 500 mg PO BID #60 tablet predniSONE [Deltasone] 20 mg PO BID #10 tablet
[2017-06-05 12:29] LABS: Hematocrit 43.3 % (37.0-47.0); Hemoglobin 14.7 gm/dL (12.5-16.0); Mean Cell Volume 92.1 fl (78-100); Mean Corpuscular Hemoglobin 31.3 pg (27-31); Mean Corpuscular Hgb Conc 33.9 g/dl (32-36); Mean Platelet Volume 9.2 fl (6.0-9.5); Neutrophil # 3.9 K/mm3 (1.3-6.0); Neutrophil % 58.7 % (42-75.0); Platelet Count 309 K/mm3 (150-450); Red Cell Distribution Width 12.5 % (11.5-14.0); White Blood Count 6.7 K/mm3 (4.0-10.5)
[2017-06-05 12:47] LABS: ALT 46 U/L (19-67); AST 30 U/L (0-48); Albumin * 4.1 gm/dl (3.4-5.0); Alkaline Phosphatase * 63 U/L (50-170); Anion Gap 14.5 mmol/L (6.8-13.8); BUN/Creatinine Ratio 13.3 (9.0-21.6); Bilirubin, Total 0.5 mg/dL (0.0-1.1); Blood Urea Nitrogen 10 mg/dL (3-23); Ca. Corrected For Albumin 8.4 mg/dL (8.4-10.2); Calcium * 8.8 mg/dL (7.9-10.9); Carbon Dioxide 26.7 mmol/L (24-32.6); Chloride 103 mmol/L (97-106); Glucose * 96 mg/dL (70-110); Magnesium 1.9 mg/dL (1.2-2.8); Potassium 4.2 mmol/L (3.4-4.6); Sodium 140 mmol/L (132-142); Total Protein 7.8 gm/dL (6.2-8.2); Troponin I Less than 0.017 ng/ml (0.00-0.10)
[2017-06-05 12:49] VITALS: BP 134/96
== END 2017-06-05 13:15 | disposition home or self-care (01) ==
LOC: ER 11:52
DX: J44.9 Chronic obstructive pulmonary disease, unspecified (principal); J20.9 Acute bronchitis, unspecified; R09.1 Pleurisy; F17.200 Nicotine dependence, unspecified, uncomplicated